=== PATIENT | female | born 1950 | race Caucasian/White ===

== ENCOUNTER → 2018-05-05 | Outpatient (CLI) | payer BC, MEDICARE, OTHER ==
[~2018-05-05] MED LIST: CRUTCH4 USE; HYDACE5 PO; NAPR500 PO; RXHYDACE PO
[2018-05-09 14:10] LABS: HPV 16 Negative (Negative); HPV 18 Negative (Negative); HPV OTHER HR TYPES Negative (Negative)
== END ==
LOC: LAB 14:17 → LAB SHORT 14:17
PROVIDERS: Obstetrics & Gynecology
DX: Z01.419 Encounter for gynecological examination (general) (routine) without abnormal findings (principal)
CPT/HCPCS: 87624; G0123

== ENCOUNTER → 2018-05-06 | Outpatient (CLI) | payer BC, MEDICARE, OTHER | END | disposition home or self-care (01) | LOC: PLD 08:32 → LAB SHORT 08:32 | DX: N95.0 Postmenopausal bleeding (principal) | CPT/HCPCS: 88305 ==

== ENCOUNTER 2024-09-25 06:17 | Day surgery (SDC) | payer OTHER ==
[~2024-09-25] VITALS: Ht 154.9 cm; Wt 61.1 kg
[2024-09-25] VITALS (13 sets, daily range): BP systolic 92–115; BP diastolic 42–72
[~2024-09-25 06:17] MED LIST changes: +AMLO5 PO; +ATOR10 PO; +Acetaminophen 500 MG Tab PO SCH; +CeFAZolin Sodium 2,000 MG in NS 100 ML IV SCH; +Chlorhexidine Mouth Care 15 ML UDC MT SCH; +DULO60 PO; +EUTHYROX50 MCG PO; +Lactated Ringer's 1,000 ML IV SCH; +OMEP20ER PO; +Ropivacaine 0.5% HCl/Pf 123.125 MG,EPINEPHrine HCL 0.25 MG,Ketorolac Tromethamine 15 MG... INFIL SCH; +Tranexamic Acid 1,000 MG in NS 100 ML IV SCH
[2024-09-25] MEDS ORDERED: Clindamycin 900mg in D5W 50ML 50 ML IV SCH (06:25)
--- NOTE | 2024-09-25 06:55 | NUR ---
History, Chart, Medications and Allergies reviewed before start of procedure. Lungs CRACKLES ON LEFT SIDE, CLEAR RIGHT. DENIES SOB OR RECENT COLD OR CONGESTION. Patient confirms NPO status and agrees with scheduled surgery. Patient reports completing Chlorhexadine shower X2 prior to admission to hospital. Pre-Op teaching done. Pt verbalizes understanding.
[2024-09-25] MEDS ORDERED: OxyCODONE HCL 10 MG TABCR PO SCH (07:00)
[2024-09-25] MEDS ORDERED: Midazolam HCl 1MG / ML 2ML Vial ONE (07:23)
[2024-09-25] MEDS ORDERED: CeFAZolin Sodium 2,000 MG in NS 100 ML IV SCH ×2 (07:25→15:30)
[2024-09-25] MEDS ORDERED: propofoL 100 ML IV ONE (07:26)
[2024-09-25] MEDS ORDERED: CeFAZolin Sodium 1000 mg Vial ONE (07:32)
[2024-09-25] MEDS ORDERED: Ondansetron HCl 2 MG / ML 2ML Vial IV PRN (07:55)
[2024-09-25] MEDS ORDERED: Magnesium Hydroxide Conc 10 ML UDC PO PRN (07:55)
[2024-09-25] MEDS ORDERED: Metoclopramide HCl 5MG / ML 2ML Vial IV PRN (07:55)
[2024-09-25] MEDS ORDERED: FLU VACC TS2024-25(6MOS UP)/PF 45 MCG/0.5 ML SYRINGE IM SCH (07:55)
[2024-09-25] MEDS ORDERED: Lactated Ringer's 1,000 ML IV SCH (07:55)
[2024-09-25] MEDS ORDERED: Bisacodyl 10 MG Supp PR PRN (08:00)
[2024-09-25] MEDS ORDERED: Prochlorperazine Edisylate 10 mg Vial IV PRN (08:00)
[2024-09-25] MEDS ORDERED: Promethazine HCl 25 MG Tab PO PRN (08:00)
[2024-09-25] MEDS ORDERED: HYDROmorphone HCl/Pf 1MG SYR IV PRN (08:00)
[2024-09-25] MEDS ORDERED: OxyCODONE HCL 5 MG TAB PO PRN ×2 (08:05)
[2024-09-25] MEDS ORDERED: DiphenhydrAMINE HCL 25 MG Cap PO PRN (08:05)
[2024-09-25] MEDS ORDERED: Phenylephrine HCl 10mg/ml 1 ml Vial ONE (08:56)
[2024-09-25] MEDS ORDERED: DULoxetine HCL 60 MG Capsule DR PO SCH (09:00)
[2024-09-25] MEDS ORDERED: Phenylephrine HCl 100 MCG/ML-NS 10MLSYR (1MG/10ML) ONE (09:11)
--- NOTE | 2024-09-25 10:09 | NUR ---
POST OP ARRIVAL TO SURGICAL UNIT VIA HOSPITAL BED, ALERT & PLEASANT. ASSESSMENT CHARTED. DENIES N/V; SNACKS & DRINK GIVEN. REPORTS TO ME THAT SHE IS HOPEFUL TO DC HOME TODAY.
[2024-09-25] MEDS ORDERED: Ketorolac Tromethamine 15mg Vial IV SCH (12:00)
[2024-09-25] MEDS ORDERED: ACET500 PO (15:32)
[2024-09-25] MEDS ORDERED: ASPI81CH PO (15:33)
[2024-09-25] MEDS ORDERED: OXYC5 PO (15:34)
[2024-09-25] MEDS ORDERED: DOCU100 PO (15:34)
[2024-09-25] MEDS ORDERED: Acetaminophen 500 MG Tab PO SCH (16:00)
--- NOTE | 2024-09-25 16:35 | NUR ---
DISCHARGE PT HAS WORKED w/ THERAPY. PAIN WELL CONTROLLED. EATING, DRINKING, & VOIDING WELL. POLAR PACK SENT w/ PT. ESCORTED OUT VIA W/C.
[2024-09-25] MEDS ORDERED: Docusate Sodium 100 MG Cap PO SCH (21:00)
[2024-09-26] MEDS ORDERED: Omeprazole 20 MG CapCR PO SCH (06:00)
[2024-09-26] MEDS ORDERED: Levothyroxine Sodium 0.05 MG Tab PO SCH (06:00)
[2024-09-26] MEDS ORDERED: Aspirin 81 MG Chew PO SCH (09:00)
[2024-09-26] MEDS ORDERED: AmLODIPine Besylate 5 MG Tab PO SCH (09:00)
[2024-09-26] MEDS ORDERED: Atorvastatin 10 MG Tab PO SCH (09:00)
== END 2024-09-25 16:45 | disposition home or self-care (01) ==
LOC: ORSCMMR 06:17 → ORD 07:30 → ORSCMMR 07:30 → SURS 09:57 → ORSCMMR 16:45
PROVIDERS: Orthopaedic Surgery
PROC: 0SRB0JA Replacement of Left Hip Joint with Synthetic Substitute, Uncemented, Open Approach (ICD-10-PCS; principal; 2024-09-25 07:30)
DX: M16.12 Unilateral primary osteoarthritis, left hip (principal); I10 Essential (primary) hypertension; E11.9 Type 2 diabetes mellitus without complications; K21.9 Gastro-esophageal reflux disease without esophagitis; Z87.891 Personal history of nicotine dependence; Z79.899 Other long term (current) drug therapy
CPT/HCPCS: 72170; 97110; 97116; 97161; 97530; A9270; C1776; J0171; J0690; J0735; J1885; J2250; J2371; J2405; J2704; J2795; J7120